=== PATIENT | male | born 1990 | race Caucasian/White ===

== ENCOUNTER 2025-01-02 22:20 | Emergency (ER) | payer OTHER ==
[~2025-01-02] VITALS: Ht 193 cm; Wt 136.1 kg
== END 2025-01-02 23:22 | disposition left against medical advice (07) ==
LOC: ED 22:20
DX: R10.9 Unspecified abdominal pain (principal); R61 Generalized hyperhidrosis; R45.1 Restlessness and agitation; Z88.8 Allergy status to other drugs, medicaments and biological substances; Z53.29 Procedure and treatment not carried out because of patient's decision for other reasons